=== PATIENT | female | born 1995 ===

== ENCOUNTER → 2017-10-02 | Outpatient (CLI) | payer OTHER ==
[2017-10-02 15:33] LABS: Source, Urine Clean Catch
[2017-10-02 17:58] LABS: Bilirubin, Urine Neg (Neg); Blood, Urine 2+ (Neg); Glucose Qualitative, Urine Neg (Neg); Ketones, Urine Neg (Neg); Leukocyte Esterase, Urine Neg (Neg); Nitrite, Urine Neg (Neg); Protein, Urine Neg (Neg); Urobilinogen, Urine NORM (Normal)
[2017-10-02 18:18] LABS: Appearance, Urine Clear (Clear); Color, Urine Yellow (P-Yellow)
[2017-10-02 18:23] LABS: White Blood Cells, Urine 25-50 /hpf (0-5)
[2017-10-02 18:24] LABS: Squamous Epithelial Cells Few /hpf (Few)
[2017-10-02 18:25] LABS: Bacteria Few /hpf
== END | disposition home or self-care (01) ==
LOC: LAB 15:20
PROVIDERS: Obstetrics & Gynecology
DX: R30.0 Dysuria (principal)
CPT/HCPCS: 81001; 87086